=== PATIENT | female | born 1960 ===

== ENCOUNTER 2025-02-27 11:15 | Inpatient (IN) | payer OTHER ==
[~2025-02-27] VITALS: Ht 157.5 cm; Wt 65.3 kg
[2025-02-27] MEDS ORDERED: LIPITOR20 MG PO (13:09)
[2025-02-27] MEDS ORDERED: TENORMIN25 MG PO (13:09)
[2025-02-27 13:10] VITALS: BP 104/60; BP 124/86
[2025-03-10] MEDS ORDERED: MORPHINE SULFATE 4 MG/ML CARTRIDGE IV PRN (17:45)
[2025-03-10] MEDS ORDERED: ONDANSETRON HCL 2 MG/ML VIAL IV PRN (17:45)
[2025-03-10] MEDS ORDERED: RINGERS SOLUTION,LACTATED 1,000 ML IV SCH (17:45)
[2025-03-10] MEDS ORDERED: MORPHINE SULFATE 2 MG,MORPHINE SULFATE 4 MG IV PRN (19:00)
[2025-03-10 21:53] VITALS: BP 104/60
[2025-03-10 23:12] LABS: BASO % 0.2 % (0.1-1.2); EOS # 0.01 (0.04-0.54); EOS % 0.1 % (0.7-7.0); LYMPH # 0.97 (1.18-3.74); LYMPH % 9.6 % (19.3-53.1); MEAN PLATELET VOLUME 11.30 fl (9.4-12.4); MONO # 0.57 (0.24-0.82); MONO % 5.6 % (4.7-12.5); NEUT # 8.53 (1.56-6.13); NEUT % 84.2 % (34.0-71.1); RED CELL DISTRIBUTION WIDTH 12.1 % (11.6-14.4)
[2025-03-11] VITALS: BP 115/71
[2025-03-11 04:30] VITALS: BP 113/73
[2025-03-11] MEDS ORDERED: IBU800 MG PO (07:06)
[2025-03-11] MEDS ORDERED: NEURONTIN300 MG PO (07:07)
[2025-03-11 08:38] VITALS: BP 103/66
[2025-03-11] MEDS ORDERED: ATENOLOL 25 MG TABLET PO SCH (09:00)
[2025-03-11] MEDS ORDERED: ENOXAPARIN SODIUM 40 MG/0.4 ML SYRINGE SUBCUTANEO SCH (09:00)
== END 2025-03-11 11:33 | disposition home or self-care (01) | DRG 743 ==
LOC: O/R 03-10 10:00 → SURH 03-10 10:30 → OB/GYN 03-10 18:24
PROVIDERS: ADMIT Obstetrics & Gynecology Gynecology; ATTEND Obstetrics & Gynecology Gynecology
PROC: 0UT74ZZ Resection of Bilateral Fallopian Tubes, Percutaneous Endoscopic Approach (ICD-10-PCS; 2025-03-10)
PROC: 0UT24ZZ Resection of Bilateral Ovaries, Percutaneous Endoscopic Approach (ICD-10-PCS; 2025-03-10)
PROC: 0UT94ZZ Resection of Uterus, Percutaneous Endoscopic Approach (ICD-10-PCS; principal; 2025-03-10 10:30)
DX: D25.1 Intramural leiomyoma of uterus (principal); N72 Inflammatory disease of cervix uteri; N84.1 Polyp of cervix uteri; D25.0 Submucous leiomyoma of uterus; D25.2 Subserosal leiomyoma of uterus